=== PATIENT | male | born 1995 | race Asian ===

== ENCOUNTER 2020-12-07 21:58 | Emergency (ER) | payer BC ==
[~2020-12-07] VITALS: Ht 177.8 cm; Wt 84.4 kg
[2020-12-07 22:05] VITALS: BP 146/88
[2020-12-07 23:00] VITALS: BP 146/88
[2020-12-07] MEDS ORDERED: LIDOCAINE 2% 100 MG/5 ML SYR IVP ONE (23:04)
[2020-12-07] MEDS ORDERED: LIDOCAINE MPF 2% 100 MG/5 ML VIAL INJ ONE (23:05)
[2020-12-07] MEDS ORDERED: HYDROcodone/APAP 5/325 MG 1 TAB TAB PO ONE (23:05)
[2020-12-07] MEDS ORDERED: LIDOCAINE MPF 1% 5 ML ONE (23:06)
[2020-12-07] MEDS ORDERED: NAPR-54 PO (23:39)
[2020-12-07] MEDS ORDERED: LIDOCAINE MPF 1% 10 MG/ML VIAL INJ ONE (23:45)
== END 2020-12-08 00:05 | disposition home or self-care (01) ==
LOC: MED 21:58
DX: S63.256A Unspecified dislocation of right little finger, initial encounter (principal); Z79.899 Other long term (current) drug therapy; X58.XXXA Exposure to other specified factors, initial encounter; Y93.67 Activity, basketball; Y92.89 Other specified places as the place of occurrence of the external cause; Y99.8 Other external cause status
CPT/HCPCS: 26770; 73140; 99284; J2001